=== PATIENT | male | born 1960 | race Asian ===

== ENCOUNTER 2017-01-10 16:06 | Emergency (ER) | payer BC, OTHER ==
[~2017-01-10] VITALS: Ht 172.7 cm; Wt 73.0 kg
[2017-01-10] MEDS ORDERED: ATOR40TA78 PO (16:49)
[2017-01-10 16:50] LABS: HEMATOCRIT 47.9 % (39.2-51.8); HEMOGLOBIN 16.3 g/dL (13.7-18.0)
[2017-01-10 16:58] LABS: BLOOD UREA NITROGEN 21 mg/dL (7-18)
[2017-01-10] MEDS ORDERED: SODIUM CHLORIDE FLUSH 10ML SYR IVF ONE (17:00)
[2017-01-10] MEDS ORDERED: OMNIPAQUE 350 MG/ML, 100ML BOTTLE ONE (17:54)
[2017-01-10 19:03] VITALS: BP 116/87
== END 2017-01-10 19:05 | disposition home or self-care (01) ==
LOC: ED 18:24
DX: S30.1XXA Contusion of abdominal wall, initial encounter (principal); S79.911A Unspecified injury of right hip, initial encounter; E78.00 Pure hypercholesterolemia, unspecified; V49.49XA Driver injured in collision with other motor vehicles in traffic accident, initial encounter; Y93.89 Activity, other specified; Y99.8 Other external cause status; Y92.488 Other paved roadways as the place of occurrence of the external cause
CPT/HCPCS: 36415; 74177; 80048; 81003; 82040; 85025; 99285; Q9967